=== PATIENT | male | born 1985 | race Caucasian/White ===

== ENCOUNTER 2020-01-24 09:36 | Inpatient (IN) | payer MEDICAID, OTHER ==
[~2020-01-24] VITALS: Ht 180.3 cm; Wt 146.1 kg
[2020-01-24] MEDS ORDERED: SODIUM CHLORIDE 0.9% 1,000 ML IV ONE ×2 (10:25→10:30)
[2020-01-24] MEDS ORDERED: ASPIRIN 81MG TABLET PO ONE (10:30)
[2020-01-24 10:37] LABS: BASOPHILS % 0.4 % (0.0-2.0); EOSINOPHILS % 0.2 % (0.0-5.0); HEMATOCRIT. 44.8 % (42.0-52.0); HEMOGLOBIN. 15.2 g/dL (14.0-18.0); LYMPHOCYTES % 12.7 % (20.0-50.0); MEAN CORPUSCULAR VOLUME 82.4 fL (80.0-94.0); MEAN PLATELET VOLUME 10.7 fl (7.4-10.4); MONOCYTES % 4.6 % (2.0-8.0); NEUTROPHILS % 82.1 % (40.0-76.0); PLATELET 85 x1000/uL (130-400); RED BLOOD CELL COUNT 5.44 mill/uL (4.7-6.1); RED CELL DISTRIBUTION WIDTH 14.3 % (11.6-14.6)
[2020-01-24 10:41] LABS: CHLORIDE 101 mEq/L (98-107)
[2020-01-24] MEDS ORDERED: ACETAMINOPHEN 325MG TABLET PO ONE (11:30)
[2020-01-24 13:14] LABS: CHLORIDE 105 mEq/L (98-107)
[2020-01-24] MEDS ORDERED: CLONIDINE 0.1MG TABLET PO PRN (14:45)
[2020-01-24] MEDS ORDERED: NITROGLYCERIN 0.4MG TABLET SL SL PRN (14:45)
[2020-01-24] MEDS ORDERED: MAGNESIUM/ALUMINUM HYDROXIDE/SIMETHICONE 30ML UDC PO PRN (14:45)
[2020-01-24] MEDS ORDERED: ACETAMINOPHEN 325MG TABLET PO PRN ×2 (14:45)
[2020-01-24] MEDS ORDERED: DOCUSATE SODIUM 100MG CAPSULE PO PRN (14:45)
[2020-01-24] MEDS ORDERED: IPRATROPIUM/ALBUTEROL 0.5-3(2.5)MG/3ML NEB NEB PRN (14:45)
[2020-01-24] MEDS ORDERED: GUAIFENESIN 200MG/10ML SUGAR FREE UDC PO PRN (14:45)
[2020-01-24] MEDS ORDERED: ONDANSETRON HCL 4MG/2ML INJ IV PRN (14:45)
[2020-01-24] MEDS ORDERED: LORAZEPAM 0.5MG TABLET PO PRN (14:45)
[2020-01-24] MEDS: ENOXAPARIN 100MG/ML SYR SUBCUT SCH (16:17)
[2020-01-24 16:35] LABS: ETHANOL BLOOD < 10 mg/dL
[2020-01-24 16:37] LABS: TOTAL IRON BINDING CAPACITY 328 ug/dL (250-450)
[2020-01-24 17:14] LABS: HEPATITIS B SURFACE ANTIGEN NEGATIVE
[2020-01-24 17:44] LABS: HEPATITIS A AB IGM NEGATIVE (NEGATIVE)
[2020-01-24] MEDS ORDERED: DEXTROSE 50% WATER 50ML SYRINGE IV PRN (17:45)
[2020-01-24 18:00] LABS: VITAMIN B12 SERUM 613 pg/mL (211-911)
[2020-01-24 18:01] LABS: FOLIC ACID (FOLATE) SERUM > 20.00 ng/mL (>5.38)
[2020-01-24] MEDS: INSULIN LISPRO 100 UNITS/ML SUBCUT SCH ×2 (18:20→20:53)
[2020-01-24] MEDS ORDERED: CEFTRIAXONE 1 G PREMIX 50 ML IV SCH (18:30)
[2020-01-24] MEDS ORDERED: AZITHROMYCIN 500 MG in DEXT 5% WATER 250 ML IV SCH (20:00)
[2020-01-24] MEDS: BLOOD SUGAR DIAGNOSTIC STRIP TEST SCH (20:50)
[2020-01-24] MEDS ORDERED: IOHEXOL-350 100 ML BOTTLE ONE (20:59)
[2020-01-24] MEDS ORDERED: ZOLPIDEM TARTRATE 5MG TABLET PO PRN (21:00)
[2020-01-24] MEDS: ASCORBIC ACID 500 MG TABLET PO SCH (23:00)
[2020-01-24] MEDS: FAMOTIDINE 20MG TABLET PO SCH (23:00)
[2020-01-25] VITALS: BP 110/65
[2020-01-25] MEDS: KETOROLAC 15MG/ML VIAL IV PRN (00:23)
[2020-01-25] MEDS: ENOXAPARIN 100MG/ML SYR SUBCUT SCH ×2 (02:08→14:12)
[2020-01-25] MEDS ORDERED: LISI-186 PO (03:12)
[2020-01-25] MEDS ORDERED: METF-415 PO (03:12)
[2020-01-25] MEDS ORDERED: PIOG15TA66 PO (03:12)
[2020-01-25] MEDS ORDERED: GLIP10TA10 PO (03:12)
[2020-01-25 04:00] VITALS: BP 100/58
[2020-01-25 06:55] LABS: INR 1.1; PROTHROMBIN TIME 11.4 sec (9.6-11.0)
[2020-01-25] MEDS: BLOOD SUGAR DIAGNOSTIC STRIP TEST SCH ×4 (06:57→21:00)
[2020-01-25] MEDS: INSULIN LISPRO 100 UNITS/ML SUBCUT SCH ×4 (07:11→21:00)
[2020-01-25 07:16] LABS: BASOPHILS % 0.4 % (0.0-2.0); EOSINOPHILS % 1.4 % (0.0-5.0); HEMATOCRIT. 38.9 % (42.0-52.0); HEMOGLOBIN. 13.4 g/dL (14.0-18.0); LYMPHOCYTES % 27.2 % (20.0-50.0); MEAN CORPUSCULAR HEMOGLOBIN 28.1 pg (28.0-32.0); MEAN CORPUSCULAR VOLUME 81.7 fL (80.0-94.0); MONOCYTES % 10.7 % (2.0-8.0); NEUTROPHILS % 60.3 % (40.0-76.0); PLATELET 90 x1000/uL (130-400); RED BLOOD CELL COUNT 4.76 mill/uL (4.7-6.1); RED CELL DISTRIBUTION WIDTH 14.4 % (11.6-14.6)
[2020-01-25 07:43] LABS: CHLORIDE 104 mEq/L (98-107)
[2020-01-25] MEDS ORDERED: PNEUMOCOCCAL 23-VAL P-SAC VAC 0.5 ML IM ONE (08:00)
[2020-01-25 08:07] LABS: CREATINE KINASE MB FRACTION 5.2 ng/mL (0.5-3.6)
[2020-01-25 08:16] LABS: CREATINE KINASE 1698 IU/L (39-308)
[2020-01-25 08:18] LABS: *AMPHETAMINES SCREEN URINE NEGATIVE (NEGATIVE); *BARBITURATES SCREEN URINE NEGATIVE (NEGATIVE); *BENZODIAZEPINES SCREEN URINE NEGATIVE (NEGATIVE); *COCAINE SCREEN URINE NEGATIVE (NEGATIVE); METHADONE URINE SCREEN NEGATIVE (NEGATIVE); OPIATES URINE SCREEN NEGATIVE (NEGATIVE)
[2020-01-25 08:20] LABS: CANNABINOID URINE SCREEN PRESUMTIVE POSITIVE (NEGATIVE); PHENCYCLIDINE URINE SCREEN NEGATIVE (NEGATIVE)
[2020-01-25] MEDS: FAMOTIDINE 20MG TABLET PO SCH (08:25)
[2020-01-25] MEDS: ASPIRIN 325MG EC TABLET PO SCH (08:25)
[2020-01-25] MEDS: ASCORBIC ACID 500 MG TABLET PO SCH ×2 (08:25→22:11)
[2020-01-25] MEDS ORDERED: POTASSIUM CHLORIDE 20MEQ/PACKET PO NR (10:00)
[2020-01-25] MEDS ORDERED: KCL 20MEQ/100ML PREMIX 100 ML IV NR (11:00)
[2020-01-25] MEDS: SODIUM CHLORIDE 0.9% 1,000 ML IV SCH ×2 (11:54→22:18)
[2020-01-25] MEDS: LEVOFLOXACIN 500MG TABLET PO SCH (12:20)
[2020-01-25] MEDS: METRONIDAZOLE 500MG TABLET PO SCH ×2 (13:16→22:18)
[2020-01-25 14:00] VITALS: BP 89/53
[2020-01-25 16:00] VITALS: BP 110/73
[2020-01-25] MEDS ORDERED: CEFTRIAXONE 1,000 MG in DEXTROSE 5% WATER 50 ML IV SCH (20:00)
[2020-01-25] MEDS ORDERED: AZITHROMYCIN 500 MG in DEXT 5% WATER 250 ML IV SCH (20:00)
[2020-01-25 20:30] LABS: CREATINE KINASE MB FRACTION 3.4 ng/mL (0.5-3.6)
[2020-01-25 20:31] VITALS: BP 97/59
[2020-01-25 20:40] LABS: CREATINE KINASE 1237 IU/L (39-308)
[2020-01-25] MEDS: ENOXAPARIN 150MG/ML SYR SUBCUT SCH (22:11)
[2020-01-26 00:15] VITALS: BP 107/88
[2020-01-26 01:00] VITALS: BP 123/64
[2020-01-26 04:00] VITALS: BP 108/61
[2020-01-26] MEDS: METRONIDAZOLE 500MG TABLET PO SCH (06:07)
[2020-01-26 06:12] LABS: BASOPHILS % 0.4 % (0.0-2.0); EOSINOPHILS % 3.3 % (0.0-5.0); HEMATOCRIT. 36.7 % (42.0-52.0); HEMOGLOBIN. 12.7 g/dL (14.0-18.0); LYMPHOCYTES % 38.4 % (20.0-50.0); MEAN CORPUSCULAR HEMOGLOBIN 28.2 pg (28.0-32.0); MEAN CORPUSCULAR VOLUME 81.6 fL (80.0-94.0); MEAN PLATELET VOLUME 10.9 fl (7.4-10.4); NEUTROPHILS % 47.9 % (40.0-76.0); PLATELET 106 x1000/uL (130-400); RED CELL DISTRIBUTION WIDTH 14.3 % (11.6-14.6)
[2020-01-26] MEDS: SODIUM CHLORIDE 0.9% 1,000 ML IV SCH (06:26)
[2020-01-26] MEDS: BLOOD SUGAR DIAGNOSTIC STRIP TEST SCH ×2 (06:27→11:56)
[2020-01-26] MEDS: INSULIN LISPRO 100 UNITS/ML SUBCUT SCH ×2 (07:50→12:20)
[2020-01-26 08:00] VITALS: BP 111/68
[2020-01-26] MEDS: ASCORBIC ACID 500 MG TABLET PO SCH (08:26)
[2020-01-26] MEDS: ENOXAPARIN 150MG/ML SYR SUBCUT SCH (08:26)
[2020-01-26] MEDS: KETOROLAC 15MG/ML VIAL IV PRN (08:26)
[2020-01-26] MEDS: ASPIRIN 325MG EC TABLET PO SCH (08:26)
[2020-01-26] MEDS ORDERED: PANTOPRAZOLE SODIUM 40 MG/VIAL IV SCH (09:00)
[2020-01-26 10:12] LABS: CHLORIDE 108 mEq/L (98-107)
[2020-01-26 10:18] LABS: LDL CHOLESTEROL 65 mg/dL (5-100)
[2020-01-26 10:20] LABS: HDL CHOLESTEROL 21 mg/dL (40-59)
[2020-01-26 10:24] VITALS: BP 111/68
[2020-01-26] MEDS: LEVOFLOXACIN 500MG TABLET PO SCH (11:45)
[2020-01-26 12:00] VITALS: BP 113/76
== END 2020-01-26 14:26 | disposition home or self-care (01) | DRG 203 ==
LOC: ER 09:36 → MICUSO 16:14 → CANRESERV 21:03 → ENRESERV 21:03 → EDBEDREQ 22:02 → 7WST 23:01 → 6WST 01-26 00:31
PROVIDERS: ADMIT Internal Medicine; ATTEND Internal Medicine
DX: M94.0 Chondrocostal junction syndrome [Tietze] (principal); I24.9 Acute ischemic heart disease, unspecified; D64.9 Anemia, unspecified; D69.6 Thrombocytopenia, unspecified; E11.65 Type 2 diabetes mellitus with hyperglycemia; E66.9 Obesity, unspecified; E83.51 Hypocalcemia; E87.1 Hypo-osmolality and hyponatremia; E87.6 Hypokalemia; R74.0 Nonspecific elevation of levels of transaminase and lactic acid dehydrogenase [LDH]; Z60.2 Problems related to living alone; J96.00 Acute respiratory failure, unspecified whether with hypoxia or hypercapnia; M62.82 Rhabdomyolysis; Z20.828 Contact with and (suspected) exposure to other viral communicable diseases; Z68.41 Body mass index [BMI] 40.0-44.9, adult; Z79.84 Long term (current) use of oral hypoglycemic drugs; Z79.899 Other long term (current) drug therapy; K52.9 Noninfective gastroenteritis and colitis, unspecified; F12.90 Cannabis use, unspecified, uncomplicated; K75.9 Inflammatory liver disease, unspecified; R07.89 Other chest pain; K76.0 Fatty (change of) liver, not elsewhere classified
CPT/HCPCS: 36415; 71045; 71275; 80048; 80053; 80061; 80305; 80320; 82550; 82553; 82607; 82728; 82746; 82962; 83036; 83540; 83550; 83615; 84145; 84484; 85025; 85379; 86705; 86709; 86803; 87015; 87045; 87340; 87427; 87449; 87493; 87635; 90732; 93005; 93970; 99285; C9113; J0456; J0696; J1650; J1815; J1885; J3480; J7030; J7060; Q9967; G0480